=== PATIENT | female | born 1960 | race Asian ===

== ENCOUNTER 2023-10-30 01:27 | Inpatient (IN) | payer MEDICAID, SELFPAY ==
[2023-10-30] MEDS: Sodium Chloride 0.9% 1,000 ML IV SCH (03:31)
[2023-10-30 03:40] VITALS: BMI 24.3
[2023-10-30] MEDS ORDERED: Acetaminophen 325 MG TAB PO PRN (05:04)
[2023-10-30] MEDS ORDERED: Nitroglycerin 0.4 MG TAB (25 Tab Bottle) SL PRN (05:50)
[2023-10-30 06:14] LABS: #Basophils Less than 0.03 10x3/uL (0.0-0.2); %Basophils 0.3 % (0.0-1.0); %Eosinophils 9.8 % (0.0-10.0); %Lymphocytes 31.5 % (21.0-51.0); %Monocytes 7.5 % (0.0-10.0); %Neutrophils 50.8 % (42.0-75.0); Hematocrit 29.9 % (36.0-47.0); Hemoglobin 10.6 g/dL (12.0-16.0); Mean Corpuscular HGB CONC 35.5 g/dL (32.0-36.0); Mean Corpuscular Hemoglobin 32.3 pg (27.0-31.0); Mean Corpuscular Volume 91.2 fL (78.0-98.0); Mean Platelet Volume 9.8 fL (7.4-10.4); Platelet Count 239 10x3/uL (130-400); RBC Distribution Width 11.2 % (11.5-14.5); Red Blood Cell (RBC) Count 3.28 mill/uL (4.20-5.40)
[2023-10-30 06:49] LABS: ALT (SGPT) 30 U/L (8-55); AST (SGOT) 23 U/L (5-34); Albumin 3.3 g/dL (3.4-4.8); Alkaline Phosphatase 121 U/L (40-110); Anion Gap 14 mmol/L (10-20); BUN (Urea Nitrogen) 29 mg/dL (9.8-20.1); Bilirubin, Total 0.4 mg/dL (0.2-1.2); Calc. Creatinine Clearance 31 mL/min (70-130); Calcium 8.5 mg/dL (7.8-10.44); Carbon Dioxide 20 mmol/L (23-31); Chloride 107 mmol/L (98-107); Estimated GFR 36; Globulin 4.1 g/dL (2.4-3.5); Glucose 261 mg/dL (80-115); Potassium 3.5 mmol/L (3.5-5.1); Protein, Total 7.4 g/dL (5.8-8.1); Sodium 137 mmol/L (136-145)
[2023-10-30 06:54] LABS: Troponin I Less than 0.010 ng/mL (< 0.028)
[2023-10-30] MEDS ORDERED: Dextrose 5% in Water 1,000 ML IV PRN ×2 (06:59→16:52)
[2023-10-30] MEDS ORDERED: Glucagon 1 MG/ML KIT IM PRN ×2 (06:59)
[2023-10-30] MEDS ORDERED: Dextrose 50% Abboject 50 ML SYRINGE SLOW IVP PRN ×2 (06:59)
[2023-10-30 07:03] LABS: Hemoglobin A1c 8.6 % (4.0-6.0)
[2023-10-30 07:04] LABS: Cardiac Risk 5.9 (Less than 4.5)
[2023-10-30] MEDS ORDERED: Insulin Lispro 100 UNIT/ML 10 ML VIAL SC PRN (07:07)
[2023-10-30 08:05] LABS: Magnesium 1.7 mg/dL (1.6-2.6); Phosphorus 2.8 mg/dL (2.3-4.7)
[2023-10-30] MEDS ORDERED: Enoxaparin 30 MG (0.3 mL) SYRINGE SC SCH (09:00)
[2023-10-30] MEDS ORDERED: Amlodipine 5 MG TAB PO SCH (09:00)
[2023-10-30 09:03] LABS: Troponin I Less than 0.010 ng/mL (< 0.028)
[2023-10-30] MEDS: Amlodipine 5 MG TAB PO SCH (09:22)
[2023-10-30] MEDS: Potassium Chloride 20 MEQ TAB PO SCH (09:22)
[2023-10-30] MEDS: HumuLIN 70/30 100 Unit/ml 10 ml Vial SC SCH (09:23)
[2023-10-30] MEDS: cefTRIAXone\\ROCEPHIN 1 GM in Sodium Chloride 0.9% 100 ML IVPB SCH (09:29)
[2023-10-30] MEDS: Pantoprazole 40 MG VIAL IVP SCH (09:29)
[2023-10-30] MEDS ORDERED: hydrALAZINE 20 MG/ML VIAL SLOW IVP PRN (09:37)
[2023-10-30] MEDS: PHOS-NAK 1 PKT PACK PO SCH (10:59)
[2023-10-30] MEDS: Magnesium 2 GM/50 ML(in water) 2 GM in Premix 1 BAG IVPB SCH (10:59)
[2023-10-30] MEDS: Polyethylene Glycol 3350 17 GM Packet PO SCH ×2 (11:00→21:31)
[2023-10-30] MEDS: Insulin Lispro 100 UNIT/ML 10 ML VIAL SC PRN ×2 (11:04→17:00)
[2023-10-30 13:28] LABS: Creatinine, Urine 12.27 mg/dL (47-110)
[2023-10-30] MEDS ORDERED: Sodium Chloride 0.65% Nasal 44 ML BOT EA NARE PRN (16:41)
[2023-10-30] MEDS: Phenazopyridine HCl 100 MG TAB PO SCH (17:01)
[2023-10-30 19:36] LABS: Influenza A by NAA Not Detected (NotDetected); Influenza B by NAA Not Detected (NotDetected); SARS-CoV-2 NAA Rapid Test Not Detected (NotDetected)
[2023-10-30] MEDS: Lactulose 20 GM (30 mL) UDCUP PO SCH (21:30)
[2023-10-30] MEDS: Benzocaine/Menthol 1 LOZ LOZ PO PRN (21:30)
[2023-10-30] MEDS: Senokot S 8.6-50 MG TAB PO SCH (21:31)
[2023-10-30] MEDS: Atorvastatin Calcium 20 MG TAB PO SCH (21:31)
[2023-10-31 04:41] LABS: #Basophils Less than 0.03 10x3/uL (0.0-0.2); %Basophils 0.3 % (0.0-1.0); %Eosinophils 7.1 % (0.0-10.0); %Lymphocytes 22.5 % (21.0-51.0); %Monocytes 6.7 % (0.0-10.0); %Neutrophils 63.1 % (42.0-75.0); Hematocrit 29.4 % (36.0-47.0); Hemoglobin 10.1 g/dL (12.0-16.0); Mean Corpuscular HGB CONC 34.4 g/dL (32.0-36.0); Mean Corpuscular Hemoglobin 32.1 pg (27.0-31.0); Mean Corpuscular Volume 93.3 fL (78.0-98.0); Mean Platelet Volume 9.9 fL (7.4-10.4); Platelet Count 230 10x3/uL (130-400); RBC Distribution Width 11.6 % (11.5-14.5); Red Blood Cell (RBC) Count 3.15 mill/uL (4.20-5.40)
[2023-10-31 04:58] LABS: Phosphorus 2.6 mg/dL (2.3-4.7)
[2023-10-31 05:06] LABS: ALT (SGPT) 29 U/L (8-55); AST (SGOT) 28 U/L (5-34); Albumin 3.1 g/dL (3.4-4.8); Alkaline Phosphatase 96 U/L (40-110); Anion Gap 12 mmol/L (10-20); BUN (Urea Nitrogen) 21 mg/dL (9.8-20.1); Bilirubin, Total 0.3 mg/dL (0.2-1.2); Calc. Creatinine Clearance 31 mL/min (70-130); Calcium 8.3 mg/dL (7.8-10.44); Carbon Dioxide 20 mmol/L (23-31); Cardiac Risk 6.1 (Less than 4.5); Chloride 111 mmol/L (98-107); Cholesterol 140 mg/dl (< 200 Desired); Estimated GFR 37; Globulin 3.7 g/dL (2.4-3.5); Glucose 135 mg/dL (80-115); HDL Cholesterol 23 mg/dL (>60 Neg Risk); LDL Cholesterol, Calculated 57 mg/dL; Potassium 3.5 mmol/L (3.5-5.1); Protein, Total 6.8 g/dL (5.8-8.1); Sodium 139 mmol/L (136-145); Triglycerides 300 mg/dL (Less than 150)
[2023-10-31] MEDS ORDERED: Polyethylene Glycol 3350 17 GM Packet PO SCH (09:00)
[2023-10-31] MEDS ORDERED: ADENOSINE 60 MG/20 ML SDV ONE (10:45)
[2023-10-31] MEDS: PHOS-NAK 1 PKT PACK PO SCH (12:15)
[2023-10-31] MEDS: Potassium Chloride 20 MEQ TAB PO SCH (12:17)
[2023-10-31] MEDS: Amlodipine 5 MG TAB PO SCH (12:48)
[2023-10-31] MEDS: HumuLIN 70/30 100 Unit/ml 10 ml Vial SC SCH (12:51)
[2023-10-31 14:50] LABS: Anion Gap 17 mmol/L (10-20); BUN (Urea Nitrogen) 21 mg/dL (9.8-20.1); Calc. Creatinine Clearance 29 mL/min (70-130); Calcium 8.6 mg/dL (7.8-10.44); Carbon Dioxide 18 mmol/L (23-31); Chloride 103 mmol/L (98-107); Estimated GFR 34; Glucose 391 mg/dL (80-115); Potassium 3.8 mmol/L (3.5-5.1); Sodium 134 mmol/L (136-145)
[2023-10-31] MEDS ORDERED: HumuLIN 70/30 100 Unit/ml 10 ml Vial SC SCH (16:30)
[2023-10-31] MEDS: Insulin Lispro 100 UNIT/ML 10 ML VIAL SC PRN ×2 (16:49→20:55)
[2023-10-31] MEDS: Insulin Glargine 30 UNITS/0.3 ML VIAL SC SCH (16:49)
[2023-10-31 18:12] LABS: Hematocrit 32.4 % (36.0-47.0); Hemoglobin 11.4 g/dL (12.0-16.0)
[2023-10-31 22:33] LABS: Anion Gap 15 mmol/L (10-20); BUN (Urea Nitrogen) 21 mg/dL (9.8-20.1); Calc. Creatinine Clearance 29 mL/min (70-130); Calcium 9.4 mg/dL (7.8-10.44); Carbon Dioxide 22 mmol/L (23-31); Chloride 103 mmol/L (98-107); Estimated GFR 33; Glucose 171 mg/dL (80-115); Potassium 3.8 mmol/L (3.5-5.1); Sodium 136 mmol/L (136-145)
[2023-11-01 04:22] LABS: #Basophils Less than 0.03 10x3/uL (0.0-0.2); %Basophils 0.1 % (0.0-1.0); %Eosinophils 8.4 % (0.0-10.0); %Lymphocytes 27.8 % (21.0-51.0); %Monocytes 5.9 % (0.0-10.0); %Neutrophils 57.7 % (42.0-75.0); Hemoglobin 11.2 g/dL (12.0-16.0); Mean Corpuscular Hemoglobin 32.2 pg (27.0-31.0); Mean Platelet Volume 9.6 fL (7.4-10.4); Platelet Count 270 10x3/uL (130-400); RBC Distribution Width 11.5 % (11.5-14.5); Red Blood Cell (RBC) Count 3.48 mill/uL (4.20-5.40)
[2023-11-01 04:46] LABS: ALT (SGPT) 29 U/L (8-55); AST (SGOT) 22 U/L (5-34); Albumin 3.5 g/dL (3.4-4.8); Alkaline Phosphatase 111 U/L (40-110); Anion Gap 14 mmol/L (10-20); BUN (Urea Nitrogen) 21 mg/dL (9.8-20.1); Bilirubin, Total 0.5 mg/dL (0.2-1.2); Calc. Creatinine Clearance 29 mL/min (70-130); Calcium 9.5 mg/dL (7.8-10.44); Carbon Dioxide 21 mmol/L (23-31); Chloride 107 mmol/L (98-107); Estimated GFR 35; Globulin 4.3 g/dL (2.4-3.5); Glucose 122 mg/dL (80-115); Potassium 3.8 mmol/L (3.5-5.1); Protein, Total 7.8 g/dL (5.8-8.1); Sodium 138 mmol/L (136-145)
[2023-11-01] MEDS: Insulin Glargine 30 UNITS/0.3 ML VIAL SC SCH (08:44)
[2023-11-01 12:36] VITALS: BP 142/78; TEMP 98.4
== END 2023-11-01 15:12 | disposition home or self-care (01) | DRG 638 ==
LOC: 2NO 02:38 → OBSVTOIN 10-31 16:26
PROVIDERS: ADMIT Family Medicine; ATTEND Family Medicine
DX: E11.65 Type 2 diabetes mellitus with hyperglycemia (principal); E87.20 Acidosis, unspecified; N17.9 Acute kidney failure, unspecified; K21.9 Gastro-esophageal reflux disease without esophagitis; I12.9 Hypertensive chronic kidney disease with stage 1 through stage 4 chronic kidney disease, or unspecified chronic kidney disease; N18.9 Chronic kidney disease, unspecified; E78.5 Hyperlipidemia, unspecified; J06.9 Acute upper respiratory infection, unspecified; Z79.899 Other long term (current) drug therapy; Z79.4 Long term (current) use of insulin; D63.1 Anemia in chronic kidney disease; K59.00 Constipation, unspecified; E11.22 Type 2 diabetes mellitus with diabetic chronic kidney disease
CPT/HCPCS: 36415; 36416; 51798; 74018; 76705; 78452; 80053; 80061; 82010; 82570; 82977; 83036; 83690; 83735; 84100; 84300; 84443; 84484; 85025; 93005; 93010; 93017; 96374; 96375; A9502; C9113; G0378; J0153; J0696; J1815; J3475; J3490; J7050

== ENCOUNTER 2023-11-02 20:16 | Observation (INO) | payer MEDICAID ==
[~2023-11-02 20:16] MED LIST: Iopamidol-370 76% 500 ML MDV (1 ML CHARGE) ONE
[2023-11-02 20:49] LABS: #Basophils 0.03 10x3/uL (0.0-0.2); %Basophils 0.3 % (0.0-1.0); %Eosinophils 4.9 % (0.0-10.0); %Lymphocytes 17.6 % (21.0-51.0); %Monocytes 7.1 % (0.0-10.0); %Neutrophils 69.8 % (42.0-75.0); Hematocrit 30.3 % (36.0-47.0); Hemoglobin 10.5 g/dL (12.0-16.0); Mean Corpuscular HGB CONC 34.7 g/dL (32.0-36.0); Mean Corpuscular Hemoglobin 32.2 pg (27.0-31.0); Mean Corpuscular Volume 92.9 fL (78.0-98.0); Platelet Count 243 10x3/uL (130-400); RBC Distribution Width 11.4 % (11.5-14.5); Red Blood Cell (RBC) Count 3.26 mill/uL (4.20-5.40)
[2023-11-02 20:59] LABS: ALT (SGPT) 30 U/L (8-55); AST (SGOT) 27 U/L (5-34); Albumin 3.6 g/dL (3.4-4.8); Alkaline Phosphatase 118 U/L (40-110); Anion Gap 15 mmol/L (10-20); BUN (Urea Nitrogen) 30 mg/dL (9.8-20.1); Bilirubin, Total 0.9 mg/dL (0.2-1.2); Calc. Creatinine Clearance 0 mL/min (70-130); Calcium 8.6 mg/dL (7.8-10.44); Carbon Dioxide 20 mmol/L (23-31); Chloride 106 mmol/L (98-107); Estimated GFR 32; Globulin 4.2 g/dL (2.4-3.5); Glucose 298 mg/dL (80-115); Potassium 3.9 mmol/L (3.5-5.1); Protein, Total 7.8 g/dL (5.8-8.1); Sodium 137 mmol/L (136-145)
[2023-11-02 23:11] LABS: Bacteria/HPF None Seen HPF (None Seen); Bilirubin Negative (Negative); Blood, Urine Negative (Negative); CAUTI Indications for Culture Dysuria,urgency,freq; Clarity Clear (Clear); Glucose, Urine (Dipstick) 500 mg/dL (Negative); Ketone, Urine Negative (Negative); Leukocyte Negative Leu/uL (Negative); Nitrite Negative (Negative); Protein, Urine (Dipstick) 70 mg/dL (Neg-Trace); RBC/HPF None Seen HPF (0-3); Specific Gravity, Urine 1.017 (1.002-1.036); Squamous Epithelial None Seen HPF (0-3); Urobilinogen Normal mg/dL (Less than 2); WBC/HPF None Seen HPF (0-3); pH, Urine 6.5 (5.0-9.0)
[2023-11-02 23:15] LABS: Urine Culture Reflex No No
[2023-11-03] MEDS ORDERED: Piperacillin/Tazobactam 4.5 GM VIAL ONE (00:02)
[2023-11-03] MEDS ORDERED: Sodium Chloride 0.9% 100 ML ONE (00:02)
[2023-11-03] MEDS ORDERED: Ondansetron PF 4 MG/2 ML Vial IVP PRN (00:12)
[2023-11-03] MEDS ORDERED: Dextrose 50% Abboject 50 ML SYRINGE SLOW IVP PRN (00:21)
[2023-11-03] MEDS ORDERED: HumaLOG 300 UNITS/3 ML VIAL SC PRN (00:21)
[2023-11-03] MEDS ORDERED: Glucagon 1 MG/ML KIT IM PRN (00:21)
[2023-11-03] MEDS ORDERED: Dextrose 5% in Water 1,000 ML IV PRN (00:21)
[2023-11-03] MEDS ORDERED: Acetaminophen 500 MG TAB PO PRN (01:40)
[2023-11-03] MEDS ORDERED: Morphine 2 MG/ML VIAL SLOW IVP PRN (01:41)
[2023-11-03] MEDS: Sodium Chloride 0.9% 1,000 ML IV SCH (02:05)
[2023-11-03 05:03] LABS: #Basophils Less than 0.03 10x3/uL (0.0-0.2); %Basophils 0.2 % (0.0-1.0); %Eosinophils 2.7 % (0.0-10.0); %Lymphocytes 21.1 % (21.0-51.0); %Monocytes 4.6 % (0.0-10.0); %Neutrophils 70.2 % (42.0-75.0); Hematocrit 28.4 % (36.0-47.0); Hemoglobin 9.9 g/dL (12.0-16.0); Mean Corpuscular HGB CONC 34.9 g/dL (32.0-36.0); Mean Corpuscular Hemoglobin 32.2 pg (27.0-31.0); Mean Corpuscular Volume 92.5 fL (78.0-98.0); Mean Platelet Volume 9.9 fL (7.4-10.4); Platelet Count 238 10x3/uL (130-400); RBC Distribution Width 11.4 % (11.5-14.5); Red Blood Cell (RBC) Count 3.07 mill/uL (4.20-5.40)
[2023-11-03] MEDS: Piperacillin/Tazobactam 3.375 GM in Sodium Chloride 0.9% 100 ML IVPB SCH (05:11)
[2023-11-03 05:24] LABS: ALT (SGPT) 28 U/L (8-55); AST (SGOT) 27 U/L (5-34); Albumin 3.2 g/dL (3.4-4.8); Alkaline Phosphatase 106 U/L (40-110); Anion Gap 13 mmol/L (10-20); BUN (Urea Nitrogen) 23 mg/dL (9.8-20.1); Bilirubin, Total 0.8 mg/dL (0.2-1.2); Calc. Creatinine Clearance 31 mL/min (70-130); Calcium 8.3 mg/dL (7.8-10.44); Carbon Dioxide 20 mmol/L (23-31); Chloride 112 mmol/L (98-107); Estimated GFR 38; Globulin 3.7 g/dL (2.4-3.5); Glucose 208 mg/dL (80-115); Potassium 4.1 mmol/L (3.5-5.1); Protein, Total 6.9 g/dL (5.8-8.1); Sodium 141 mmol/L (136-145)
[2023-11-03] MEDS ORDERED: Bupivacaine 0.25% HCL 30 ML VIAL ONE (08:57)
[2023-11-03] MEDS ORDERED: EPINEPHrine 1 MG/ML VIAL ONE (08:57)
[2023-11-03] MEDS ORDERED: Lidocaine 1% PF 5 ML VIAL ONE (08:58)
[2023-11-03] MEDS ORDERED: SUGAMMADEX SODIUM 200 MG/2 ML VIAL ONE (08:58)
[2023-11-03] MEDS ORDERED: Rocuronium Bromide 10 MG/ML (10ML VIAL) ONE (08:58)
[2023-11-03] MEDS ORDERED: fentaNYL PF 100 MCG/2 ML SYRINGE ONE (08:58)
[2023-11-03] MEDS ORDERED: PHENYLEPHRINE-NS 100 MCG/ML 10 ML SYRINGE ONE (08:58)
[2023-11-03] MEDS ORDERED: Ondansetron PF 4 MG/2 ML Vial ONE (08:58)
[2023-11-03] MEDS ORDERED: PROPOFOL 20 ML ONE (08:58)
[2023-11-03] MEDS ORDERED: [UNRECOGNIZED DRUG - OTHER] SQ SCH (09:00)
[2023-11-03] MEDS ORDERED: INSULIN GLARGINE HUM REC ANLOG SQ SCH (09:00)
[2023-11-03] MEDS: Amlodipine 5 MG TAB PO SCH (09:04)
[2023-11-03] MEDS: Insulin Glargine 30 UNITS/0.3 ML VIAL SC SCH (09:05)
[2023-11-03] MEDS: Pantoprazole DR 40 MG TAB PO SCH (09:05)
[2023-11-03] MEDS ORDERED: Etomidate 40 MG (20 mL) VIAL ONE (09:44)
[2023-11-03] MEDS ORDERED: Albumin 5% 0 ML ONE (09:47)
[2023-11-03] MEDS ORDERED: Esmolol 100 MG/10 ML VIAL ONE (09:57)
[2023-11-03] MEDS ORDERED: Dexamethasone 20 MG/5 ML VIAL ONE (10:39)
[2023-11-03] MEDS: Insulin Lispro 100 UNIT/ML 10 ML VIAL SC PRN ×2 (12:49→17:28)
[2023-11-03] MEDS: Acetaminophen/Codeine 30-300mg Tablet PO PRN (20:50)
[2023-11-03] MEDS: Atorvastatin Calcium 20 MG TAB PO SCH (20:51)
[2023-11-04 07:33] LABS: #Basophils Less than 0.03 10x3/uL (0.0-0.2); #Eosinphils Less than 0.03 10x3/uL (0.0-0.7); %Basophils 0.1 % (0.0-1.0); %Lymphocytes 16.4 % (21.0-51.0); %Monocytes 6.2 % (0.0-10.0); %Neutrophils 75.7 % (42.0-75.0); Hematocrit 27.5 % (36.0-47.0); Hemoglobin 9.1 g/dL (12.0-16.0); Mean Corpuscular HGB CONC 33.1 g/dL (32.0-36.0); Mean Corpuscular Hemoglobin 31.7 pg (27.0-31.0); Mean Corpuscular Volume 95.8 fL (78.0-98.0); Mean Platelet Volume 10.1 fL (7.4-10.4); Platelet Count 239 10x3/uL (130-400); RBC Distribution Width 11.5 % (11.5-14.5); Red Blood Cell (RBC) Count 2.87 mill/uL (4.20-5.40)
[2023-11-04 08:01] LABS: ALT (SGPT) 30 U/L (8-55); AST (SGOT) 27 U/L (5-34); Albumin 3.1 g/dL (3.4-4.8); Alkaline Phosphatase 85 U/L (40-110); Anion Gap 14 mmol/L (10-20); BUN (Urea Nitrogen) 26 mg/dL (9.8-20.1); Bilirubin, Total 0.8 mg/dL (0.2-1.2); Calc. Creatinine Clearance 29 mL/min (70-130); Calcium 8.7 mg/dL (7.8-10.44); Carbon Dioxide 18 mmol/L (23-31); Chloride 110 mmol/L (98-107); Estimated GFR 34; Globulin 3.5 g/dL (2.4-3.5); Glucose 151 mg/dL (80-115); Potassium 3.9 mmol/L (3.5-5.1); Protein, Total 6.6 g/dL (5.8-8.1); Sodium 138 mmol/L (136-145)
[2023-11-04 12:11] VITALS: BP 130/71; TEMP 98.1
== END 2023-11-04 13:45 | disposition home or self-care (01) ==
LOC: ERS 20:16 → SURG B 11-03 00:25
PROVIDERS: ADMIT Student in an Organized Health Care Education/Training Program; ATTEND Student in an Organized Health Care Education/Training Program
PROC: 0DTJ4ZZ Resection of Appendix, Percutaneous Endoscopic Approach (ICD-10-PCS; principal; 2023-11-03)
DX: K35.80 Unspecified acute appendicitis (principal); E11.65 Type 2 diabetes mellitus with hyperglycemia; E11.22 Type 2 diabetes mellitus with diabetic chronic kidney disease; I12.9 Hypertensive chronic kidney disease with stage 1 through stage 4 chronic kidney disease, or unspecified chronic kidney disease; N18.9 Chronic kidney disease, unspecified; K21.9 Gastro-esophageal reflux disease without esophagitis; E78.5 Hyperlipidemia, unspecified; D72.829 Elevated white blood cell count, unspecified; Z79.4 Long term (current) use of insulin; Z79.899 Other long term (current) drug therapy
CPT/HCPCS: 36415; 36416; 74177; 80053; 81001; 83605; 84443; 85025; 87040; 88304; 93005; 96361; 96365; 96366; 96376; A4314; A4649; G0378; J0171; J0665; J1100; J1815; J2405; J2543; J2704; J3490; J7050; P9045; Q9967

== ENCOUNTER 2024-06-03 14:29 | Observation (INO) | payer MEDICAID, SELFPAY ==
[2024-06-03 15:08] LABS: #Basophils 0.04 10x3/uL (0.0-0.2); %Basophils 0.5 % (0.0-1.0); %Eosinophils 4.2 % (0.0-10.0); %Monocytes 8.3 % (0.0-10.0); %Neutrophils 58.8 % (42.0-75.0); Hematocrit 33.9 % (36.0-47.0); Hemoglobin 11.7 g/dL (12.0-16.0); Mean Corpuscular HGB CONC 34.5 g/dL (32.0-36.0); Mean Corpuscular Hemoglobin 31.6 pg (27.0-31.0); Mean Corpuscular Volume 91.6 fL (78.0-98.0); Mean Platelet Volume 8.9 fL (7.4-10.4); Platelet Count 335 10x3/uL (130-400); RBC Distribution Width 11.8 % (11.5-14.5)
[2024-06-03 15:39] LABS: ALT (SGPT) 21 U/L (Less than 34); AST (SGOT) 28 U/L (11-34); Albumin 3.9 g/dL (3.1-4.5); Alkaline Phosphatase 88 U/L (40-110); Anion Gap 13 mmol/L (10-20); BUN (Urea Nitrogen) 24 mg/dL (9.8-20.1); Bilirubin, Total 0.4 mg/dL (0.3-1.2); Calc. Creatinine Clearance 0 mL/min (70-130); Calcium 9.6 mg/dL (7.8-10.44); Carbon Dioxide 24 mmol/L (23-31); Chloride 105 mmol/L (98-107); Estimated GFR 26; Globulin 4.6 g/dL (2.4-3.5); Glucose 42 mg/dL (80-115); Potassium 3.2 mmol/L (3.5-5.1); Protein, Total 8.5 g/dL (5.8-8.1); Sodium 139 mmol/L (136-145)
[2024-06-03] MEDS ORDERED: Dextrose 10% in Water 250 ML ONE (15:41)
[2024-06-03] MEDS ORDERED: Dextrose 50% Abboject 50 ML SYRINGE ONE (15:42)
[2024-06-03 16:35] LABS: Troponin I 0.014 ng/mL (< 0.028)
[2024-06-03] MEDS ORDERED: Potassium Chloride 20 MEQ TAB ONE (17:51)
[2024-06-03 18:21] LABS: Bacteria/HPF None Seen HPF (None Seen); Bilirubin Negative (Negative); Blood, Urine Trace (Negative); CAUTI Indications for Culture Fever or rigors; Clarity Clear (Clear); Glucose, Urine (Dipstick) 500 mg/dL (Negative); Ketone, Urine Negative (Negative); Leukocyte Negative Leu/uL (Negative); Nitrite Negative (Negative); Protein, Urine (Dipstick) 200 mg/dL (Neg-Trace); RBC/HPF 0-3 HPF (0-3); Specific Gravity, Urine 1.008 (1.002-1.036); Squamous Epithelial 0-3 HPF (0-3); Urobilinogen Normal mg/dL (Less than 2); WBC/HPF 0-3 HPF (0-3); pH, Urine 6.5 (5.0-9.0)
[2024-06-03 18:22] LABS: Urine Culture Reflex No No
[2024-06-03] MEDS ORDERED: Magnesium 2 GM/50 ML BAG (IN WATER) ONE (20:52)
[2024-06-03] MEDS ORDERED: Ondansetron PF 4 MG/2 ML Vial IVP PRN (21:21)
[2024-06-03] MEDS ORDERED: Dextrose 50% Abboject 50 ML SYRINGE SLOW IVP PRN (21:21)
[2024-06-03] MEDS ORDERED: Dextrose 5% in Water 1,000 ML IV PRN (21:21)
[2024-06-03] MEDS ORDERED: Ondansetron ODT 4 MG TAB PO PRN (21:21)
[2024-06-03] MEDS ORDERED: Bisacodyl 5 MG TAB PO PRN (21:21)
[2024-06-03] MEDS ORDERED: Glucagon 1 MG/ML KIT IM PRN (21:21)
[2024-06-03 23:02] LABS: Magnesium 2.6 mg/dL (1.6-2.6)
[2024-06-03 23:03] LABS: Lactic Acid 1.56 mmol/L (0.50-2.20)
[2024-06-03] MEDS ORDERED: Polyethylene Glycol 3350 17 GM Packet PO PRN (23:11)
[2024-06-03] MEDS: Acetaminophen 325 MG TAB PO PRN (23:39)
[2024-06-03] MEDS: Lactated Ringer's 1,000 ML IV SCH (23:39)
[2024-06-03] MEDS: Lactulose 20 GM (30 mL) UDCUP PO SCH (23:39)
[2024-06-03] MEDS: Cyclobenzaprine 10 MG TAB PO SCH (23:39)
[2024-06-03] MEDS: Pantoprazole 40 MG VIAL IVP SCH (23:39)
[2024-06-03 23:55] VITALS: BMI 23.1
[2024-06-04 05:31] LABS: #Basophils 0.03 10x3/uL (0.0-0.2); %Basophils 0.4 % (0.0-1.0); %Eosinophils 6.6 % (0.0-10.0); %Lymphocytes 27.3 % (21.0-51.0); %Monocytes 7.6 % (0.0-10.0); %Neutrophils 57.7 % (42.0-75.0); Hematocrit 29.4 % (36.0-47.0); Hemoglobin 9.8 g/dL (12.0-16.0); Mean Corpuscular HGB CONC 33.3 g/dL (32.0-36.0); Mean Corpuscular Hemoglobin 31.1 pg (27.0-31.0); Mean Corpuscular Volume 93.3 fL (78.0-98.0); Mean Platelet Volume 9.1 fL (7.4-10.4); Platelet Count 277 10x3/uL (130-400); RBC Distribution Width 11.9 % (11.5-14.5); Red Blood Cell (RBC) Count 3.15 mill/uL (4.20-5.40)
[2024-06-04 05:56] LABS: ALT (SGPT) 17 U/L (Less than 34); AST (SGOT) 24 U/L (11-34); Albumin 3.1 g/dL (3.1-4.5); Alkaline Phosphatase 71 U/L (40-110); Anion Gap 12 mmol/L (10-20); BUN (Urea Nitrogen) 18 mg/dL (9.8-20.1); Bilirubin, Total 0.3 mg/dL (0.3-1.2); Calc. Creatinine Clearance 23 mL/min (70-130); Calcium 8.3 mg/dL (7.8-10.44); Carbon Dioxide 23 mmol/L (23-31); Chloride 107 mmol/L (98-107); Estimated GFR 27; Globulin 3.6 g/dL (2.4-3.5); Glucose 144 mg/dL (80-115); Potassium 3.9 mmol/L (3.5-5.1); Protein, Total 6.7 g/dL (5.8-8.1); Sodium 138 mmol/L (136-145)
[2024-06-04] MEDS ORDERED: Guaifenesin DM 100-10/5 ML UDCUP PO PRN (07:10)
[2024-06-04] MEDS ORDERED: Enoxaparin 30 MG (0.3 mL) SYRINGE SC SCH (09:00)
[2024-06-04] MEDS: Amlodipine 10 MG TAB PO SCH (09:28)
[2024-06-04] MEDS: Lactulose 20 GM (30 mL) UDCUP PO SCH (09:28)
[2024-06-04] MEDS: Heparin 5,000 UNITS/ML VIAL SC SCH (09:29)
[2024-06-04] MEDS: Pantoprazole 40 MG GRANULES PACKET PO SCH (10:45)
[2024-06-04] MEDS: Insulin Lispro 100 UNIT/ML 10 ML VIAL SC PRN (13:07)
[2024-06-04 14:53] VITALS: BP 137/68; TEMP 99.7
[2024-06-04] MEDS ORDERED: FLU (Fluad Triv) TS24-25 (65UP)/MF59C/PF 45 MCG/0.5 ML Syringe IM ONE (18:00)
== END 2024-06-04 15:20 | disposition home or self-care (01) ==
LOC: ERS 14:29 → T4-A 21:21
PROVIDERS: ADMIT Family Medicine; ATTEND Family Medicine
DX: K59.00 Constipation, unspecified (principal); R11.0 Nausea; R05.9 Cough, unspecified; I12.9 Hypertensive chronic kidney disease with stage 1 through stage 4 chronic kidney disease, or unspecified chronic kidney disease; N18.32 Chronic kidney disease, stage 3b; N17.9 Acute kidney failure, unspecified; E11.22 Type 2 diabetes mellitus with diabetic chronic kidney disease; E16.2 Hypoglycemia, unspecified; E78.5 Hyperlipidemia, unspecified; D63.1 Anemia in chronic kidney disease; M54.2 Cervicalgia; M25.512 Pain in left shoulder; M25.511 Pain in right shoulder; Z90.49 Acquired absence of other specified parts of digestive tract; Z79.4 Long term (current) use of insulin; Z79.899 Other long term (current) drug therapy
CPT/HCPCS: 36415; 36416; 71046; 74018; 74176; 80053; 81001; 83605; 83690; 83735; 83880; 84484; 85025; 87428; 93005; 96372; 96374; 96375; G0378; J1644; J1815; J2470; J3475; J7120; J7999